=== PATIENT | male | born 1960 | race Hispanic/Latino ===

== ENCOUNTER 2018-04-22 08:48 | Outpatient (CLI) | payer OTHER ==
[2018-04-22] MEDS ORDERED: Iopamidol 370 76% 100 ML VIAL ONE (13:34)
== END 2018-04-22 08:49 | disposition home or self-care (01) ==
LOC: BICCT 08:48
PROVIDERS: ATTEND Specialist
DX: R22.1 Localized swelling, mass and lump, neck (principal)
CPT/HCPCS: 70491

== ENCOUNTER 2019-10-11 18:30 | Outpatient (CLI) | payer OTHER | END 2019-10-11 18:31 | disposition home or self-care (01) | LOC: SLEEPLAB 18:30 | PROVIDERS: ATTEND Internal Medicine Critical Care Medicine | DX: G47.33 Obstructive sleep apnea (adult) (pediatric) (principal); R53.83 Other fatigue | CPT/HCPCS: 95806 ==

== ENCOUNTER 2024-08-31 09:43 | Emergency (ER) | payer BC, OTHER ==
[2024-08-31 12:45] LABS: #Basophils 0.04 10x3/uL (0.0-0.2); %Basophils 0.4 % (0.0-1.0); %Eosinophils 2.9 % (0.0-10.0); %Lymphocytes 21.8 % (21.0-51.0); %Monocytes 6.7 % (0.0-10.0); %Neutrophils 67.9 % (42.0-75.0); Hemoglobin 15.4 g/dL (14.0-18.0); Mean Corpuscular HGB CONC 32.8 g/dL (32.0-36.0); Mean Corpuscular Hemoglobin 27.8 pg (27.0-31.0); Mean Corpuscular Volume 84.8 fL (78.0-98.0); Mean Platelet Volume 10.4 fL (7.4-10.4); Platelet Count 232 10x3/uL (130-400); Red Blood Cell (RBC) Count 5.54 mill/uL (4.70-6.10)
[2024-08-31 13:11] LABS: ALT (SGPT) 21 U/L (8-55); AST (SGOT) 19 U/L (5-34); Albumin 3.9 g/dL (3.4-4.8); Alkaline Phosphatase 60 U/L (40-110); Anion Gap 13 mmol/L (10-20); BUN (Urea Nitrogen) 14 mg/dL (8.4-25.7); Bilirubin, Total 0.5 mg/dL (0.2-1.2); Calc. Creatinine Clearance 0 mL/min (70-130); Calcium 9.4 mg/dL (7.8-10.44); Carbon Dioxide 30 mmol/L (23-31); Chloride 99 mmol/L (98-107); Estimated GFR 93; Globulin 3.3 g/dL (2.4-3.5); Glucose 104 mg/dL (80-115); Potassium 3.6 mmol/L (3.5-5.1); Protein, Total 7.2 g/dL (5.8-8.1); Sodium 138 mmol/L (136-145)
[2024-08-31 13:15] LABS: Troponin I Less than 0.010 ng/mL (< 0.028)
== END 2024-08-31 14:42 | disposition home or self-care (01) ==
LOC: ERS 09:43
DX: S72.111D Displaced fracture of greater trochanter of right femur, subsequent encounter for closed fracture with routine healing (principal); R07.9 Chest pain, unspecified; I10 Essential (primary) hypertension; Z87.891 Personal history of nicotine dependence; E78.5 Hyperlipidemia, unspecified; Z79.82 Long term (current) use of aspirin; Z79.899 Other long term (current) drug therapy; W17.89XD Other fall from one level to another, subsequent encounter
CPT/HCPCS: 36415; 71045; 84484; 85025; 85379; 93005